=== PATIENT | female | born 1970 | race Caucasian/White ===

== ENCOUNTER 2021-08-21 15:40 | Inpatient (IN) ==
[2021-08-21] MEDS ORDERED: Nitroglycerin 0.4 MG TAB.SUBL SL PRN (18:12)
[2021-08-21] MEDS ORDERED: Aspirin 325 MG TABLET PO ONE (18:12)
[2021-08-21 18:21] LABS: Basophils # 0.1 K/mcL (0.0-0.2); Basophils % 0.6 %; Eosinophils # 0.1 K/mcL (0.0-0.6); Eosinophils % 1.5 %; Hematocrit 42.7 % (35.3-44.9); Hemoglobin 14.2 g/dL (11.5-15.4); Immature Granulocytes % 0.3 % (0-4); Lymphocytes # 3.7 K/mcL (0.6-4.6); Mean Corpuscular HGB Conc 33.3 g/dL (31.6-35.5); Mean Corpuscular Hemoglobin 29.6 pg (28.0-33.3); Mean Corpuscular Volume 89.1 fL (83.0-100.0); Mean Platelet Volume 10.6 fL (9.4-12.4); Monocytes # 0.8 K/mcL (0.0-1.3); Monocytes % 9.9 %; Neutrophils # 3.1 K/mcL (1.6-8.9); Platelet Count 236 K/mcL (140-400); Red Blood Count 4.79 M/mcL (3.82-4.97); Red Cell Distribution Width 12.2 % (11.5-14.5); Segmented Neutrophils % 39.7 %; White Blood Count 7.8 K/mcL (4.3-11.1)
[2021-08-21 18:35] LABS: BUN/Creatinine Ratio 29 (6-26); Blood Urea Nitrogen 18 mg/dL (6-20); Calcium 9.6 mg/dL (8.6-10.3); Carbon Dioxide 27 mEq/L (23-29); Chloride 102 mEq/L (98-107); Glucose 126 mg/dL (70-105); Osmolality,Calculated 287 (280-300); Potassium 3.6 mEq/L (3.5-5.1); Sodium 137 mEq/L (136-145); eGFR For African Americans > 60 (> 60); eGFR For Non-African Americans > 60 (> 60)
[2021-08-21 18:36] LABS: INR 1.1; Prothrombin Time 12.8 Seconds (9.4-12.1); Troponin I < 0.03 ng/mL (< 0.04)
[2021-08-21 18:39] LABS: Activated Partial Thrombo Time 28.2 Seconds (26.0-36.0)
[2021-08-21] MEDS ORDERED: Acetaminophen 325 MG TABLET PO PRN (19:39)
[2021-08-21] MEDS ORDERED: Melatonin 3 MG TABLET PO PRN (19:39)
[2021-08-21] MEDS ORDERED: Naloxone 0.4 MG/ML INJ IVP PRN (19:39)
[2021-08-21] MEDS ORDERED: *HR* HYDROcodone/Acet 5/325 mg TABLET PO PRN (19:39)
[2021-08-21] MEDS ORDERED: *HR* OxyCODONE Immed Rel 5 MG TABLET PO PRN (19:39)
[2021-08-21] MEDS ORDERED: Ondansetron ODT 4 MG TAB.RAPDIS SL PRN (19:39)
[2021-08-21] MEDS ORDERED: Perflutren Lipid Microsphere 1.3 ML in 0.9 % Sodium Chloride 8.7 ML IVP PRN (19:42)
[2021-08-21] MEDS ORDERED: *HR* Dextrose 50 % in Water (Syg) 50 ML SYRINGE IVP PRN (19:48)
[2021-08-21] MEDS ORDERED: D5% in Water 1,000 ML IVC PRN (19:48)
[2021-08-21] MEDS ORDERED: Dextrose 4 GM Chewable Tablets PO PRN ×2 (19:48)
[2021-08-22] MEDS: Insulin LISPRO 300 UNITS/3 ML VIAL SUBQ SCH ×4 (00:10→16:48)
[2021-08-22 01:19] LABS: BUN/Creatinine Ratio 20 (6-26); Blood Urea Nitrogen 16 mg/dL (6-20); Calcium 9.1 mg/dL (8.6-10.3); Carbon Dioxide 26 mEq/L (23-29); Chloride 105 mEq/L (98-107); Chol/HDL Ratio 4.1 (0-4.9); Cholesterol 144 mg/dL (< 200); Glucose 115 mg/dL (70-105); HDL Cholesterol 35 mg/dL (40-59); LDL Cholesterol,Calculated 82 mg/dL (< 100); Magnesium 1.8 mg/dL (1.6-2.6); Osmolality,Calculated 290 (280-300); Phosphorous 4.9 mg/dL (2.7-4.5); Potassium 3.6 mEq/L (3.5-5.1); Sodium 139 mEq/L (136-145); Triglycerides 134 mg/dL (< 150); eGFR For African Americans > 60 (> 60); eGFR For Non-African Americans > 60 (> 60)
[2021-08-22 01:28] LABS: Hematocrit 40.4 % (35.3-44.9); Hemoglobin 13.5 g/dL (11.5-15.4); Mean Corpuscular HGB Conc 33.4 g/dL (31.6-35.5); Mean Corpuscular Hemoglobin 29.3 pg (28.0-33.3); Mean Corpuscular Volume 87.8 fL (83.0-100.0); Mean Platelet Volume 10.7 fL (9.4-12.4); Platelet Count 233 K/mcL (140-400); Red Cell Distribution Width 12.2 % (11.5-14.5); White Blood Count 7.8 K/mcL (4.3-11.1)
[2021-08-22 01:32] LABS: Thyroid Stimulating Hormone 0.919 mcIU/mL (0.340-5.600)
[2021-08-22 02:42] LABS: Estimated Average Glucose 192 mg/dl; Hemoglobin A1C 8.3 %
[2021-08-22] MEDS ORDERED: Regadenoson 0.4 MG/5 ML SYRINGE IVP ONE (06:14)
[2021-08-22] MEDS: Losartan/HCTZ 50-12.5 TABLET PO SCH (09:42)
[2021-08-22] MEDS: Aspirin 81 MG TAB.CHEW PO SCH (09:42)
[2021-08-22] MEDS: Insulin DETEMIR 100 UNIT/ML X5UNITS SUBQ SCH (09:43)
[2021-08-22] MEDS: Metoprolol XL (24 HR) Succ 25 MG TAB.ER.24H PO SCH (12:35)
[2021-08-22] MEDS: *HR* Heparin 5,000 UNIT/ML VIAL SQ SCH ×2 (12:36→21:07)
[2021-08-23] MEDS: Insulin LISPRO 300 UNITS/3 ML VIAL SUBQ SCH ×5 (00:06→23:46)
[2021-08-23] MEDS: *HR* Heparin 5,000 UNIT/ML VIAL SQ SCH ×3 (05:44→21:45)
[2021-08-23 05:48] LABS: BUN/Creatinine Ratio 21 (6-26); Blood Urea Nitrogen 13 mg/dL (6-20); Calcium 9.2 mg/dL (8.6-10.3); Carbon Dioxide 28 mEq/L (23-29); Chloride 105 mEq/L (98-107); Glucose 110 mg/dL (70-105); Magnesium 1.9 mg/dL (1.6-2.6); Osmolality,Calculated 291 (280-300); Potassium 3.7 mEq/L (3.5-5.1); Sodium 140 mEq/L (136-145); eGFR For African Americans > 60 (> 60); eGFR For Non-African Americans > 60 (> 60)
[2021-08-23] MEDS: Losartan/HCTZ 50-12.5 TABLET PO SCH (08:28)
[2021-08-23] MEDS: Metoprolol XL (24 HR) Succ 25 MG TAB.ER.24H PO SCH (08:34)
[2021-08-23] MEDS: Aspirin 81 MG TAB.CHEW PO SCH (08:34)
[2021-08-23] MEDS: Insulin DETEMIR 100 UNIT/ML X5UNITS SUBQ SCH (08:36)
[2021-08-23] MEDS ORDERED: *HR* Heparin 10,000 UNIT/10 ML VIAL ONE ×2 (12:58→13:40)
[2021-08-23] MEDS ORDERED: Heparin 1,000 UNITS/500 mL 500 ML ONE ×2 (12:58→14:07)
[2021-08-23] MEDS ORDERED: ISOVUE-370 200 ML INFUS..BTL ONE ×2 (12:58→14:14)
[2021-08-23] MEDS ORDERED: *HR* Midazolam HCl 2 MG/2 ML VIAL ONE (12:58)
[2021-08-23] MEDS ORDERED: *HR* FentaNYL (PF) 100 MCG/2 ML VIAL ONE (12:58)
[2021-08-23] MEDS ORDERED: Nitroglycerin 1,000 MCG/5 ML VIAL IV ONE (12:59)
[2021-08-23] MEDS ORDERED: 0.9 % Sodium Chloride 1,000 ML ONE (12:59)
[2021-08-23] MEDS ORDERED: *HR* Ticagrelor 90 MG TABLET ONE ×2 (13:45)
[2021-08-24 01:29] LABS: Hematocrit 41.4 % (35.3-44.9); Hemoglobin 13.9 g/dL (11.5-15.4); Mean Corpuscular HGB Conc 33.6 g/dL (31.6-35.5); Mean Corpuscular Hemoglobin 29.8 pg (28.0-33.3); Mean Corpuscular Volume 88.8 fL (83.0-100.0); Mean Platelet Volume 10.2 fL (9.4-12.4); Platelet Count 231 K/mcL (140-400); Red Blood Count 4.66 M/mcL (3.82-4.97); Red Cell Distribution Width 12.4 % (11.5-14.5); White Blood Count 6.1 K/mcL (4.3-11.1)
[2021-08-24 01:49] LABS: BUN/Creatinine Ratio 23 (6-26); Blood Urea Nitrogen 13 mg/dL (6-20); Calcium 9.1 mg/dL (8.6-10.3); Carbon Dioxide 25 mEq/L (23-29); Chloride 106 mEq/L (98-107); Glucose 103 mg/dL (70-105); Magnesium 1.9 mg/dL (1.6-2.6); Osmolality,Calculated 288 (280-300); Potassium 3.5 mEq/L (3.5-5.1); Sodium 139 mEq/L (136-145); eGFR For African Americans > 60 (> 60); eGFR For Non-African Americans > 60 (> 60)
[2021-08-24] MEDS: *HR* Heparin 5,000 UNIT/ML VIAL SQ SCH (05:41)
[2021-08-24] MEDS: Insulin LISPRO 300 UNITS/3 ML VIAL SUBQ SCH ×2 (05:47→11:52)
[2021-08-24] MEDS: Metoprolol XL (24 HR) Succ 25 MG TAB.ER.24H PO SCH (07:24)
[2021-08-24] MEDS: Aspirin 81 MG TAB.CHEW PO SCH (07:24)
[2021-08-24] MEDS: Losartan/HCTZ 50-12.5 TABLET PO SCH (07:24)
[2021-08-24] MEDS: Insulin DETEMIR 100 UNIT/ML X5UNITS SUBQ SCH (07:25)
[2021-08-24 10:38] VITALS: BP 125/84; PULSE 83; TEMP 98.2; O2SAT 94
== END 2021-08-24 13:02 | disposition home or self-care (01) | DRG 247 ==
LOC: EMEROOARM 15:40 → 3BNU 15:40 → SUATTDRO 19:34 → 3BNU 19:52
PROVIDERS: ADMIT Internal Medicine; ATTEND Registered Nurse

== ENCOUNTER 2021-08-26 08:09 | Observation (INO) ==
[2021-08-26 09:56] LABS: Basophils % 0.6 %; Eosinophils # 0.2 K/mcL (0.0-0.6); Eosinophils % 2.2 %; Hematocrit 44.5 % (35.3-44.9); Hemoglobin 14.6 g/dL (11.5-15.4); Immature Granulocytes % 0.1 % (0-4); Lymphocytes # 3.5 K/mcL (0.6-4.6); Mean Corpuscular HGB Conc 32.8 g/dL (31.6-35.5); Mean Corpuscular Hemoglobin 29.6 pg (28.0-33.3); Mean Corpuscular Volume 90.3 fL (83.0-100.0); Mean Platelet Volume 10.5 fL (9.4-12.4); Monocytes # 0.8 K/mcL (0.0-1.3); Monocytes % 10.6 %; Neutrophils # 2.7 K/mcL (1.6-8.9); Platelet Count 238 K/mcL (140-400); Red Blood Count 4.93 M/mcL (3.82-4.97); Red Cell Distribution Width 12.3 % (11.5-14.5); Segmented Neutrophils % 37.5 %; White Blood Count 7.2 K/mcL (4.3-11.1)
[2021-08-26] MEDS ORDERED: GI Cocktail 40 ML EACH PO ONE (10:04)
[2021-08-26 10:06] LABS: BUN/Creatinine Ratio 20 (6-26); Blood Urea Nitrogen 15 mg/dL (6-20); Calcium 9.3 mg/dL (8.6-10.3); Carbon Dioxide 26 mEq/L (23-29); Chloride 106 mEq/L (98-107); Glucose 156 mg/dL (70-105); Osmolality,Calculated 292 (280-300); Potassium 3.8 mEq/L (3.5-5.1); Sodium 139 mEq/L (136-145); eGFR For African Americans > 60 (> 60); eGFR For Non-African Americans > 60 (> 60)
[2021-08-26 10:10] LABS: Troponin I 0.05 ng/mL (< 0.04)
[2021-08-26 10:25] LABS: Magnesium 1.9 mg/dL (1.6-2.6)
[2021-08-26] MEDS ORDERED: Isovue-370 500 ML BOTTLE IVP ONE (10:52)
[2021-08-26] MEDS ORDERED: Naloxone 0.4 MG/ML INJ IVP PRN ×2 (13:12→13:47)
[2021-08-26] MEDS ORDERED: Ondansetron ODT 4 MG TAB.RAPDIS SL PRN (13:12)
[2021-08-26] MEDS ORDERED: D5% in Water 1,000 ML IVC PRN (13:16)
[2021-08-26] MEDS ORDERED: Dextrose 4 GM Chewable Tablets PO PRN ×2 (13:16)
[2021-08-26] MEDS ORDERED: *HR* Dextrose 50 % in Water (Syg) 50 ML SYRINGE IVP PRN (13:16)
[2021-08-26] MEDS: Aspirin Enteric Coated 81 MG Tablet PO SCH (13:56)
[2021-08-26] MEDS: Metoprolol XL (24 HR) Succ 25 MG TAB.ER.24H PO SCH (14:12)
[2021-08-26] MEDS: *HR* Heparin 5,000 UNIT/ML VIAL SQ SCH ×2 (14:13→20:57)
[2021-08-26] MEDS: Insulin DETEMIR 100 UNIT/ML X5UNITS SUBQ SCH (14:18)
[2021-08-26] MEDS ORDERED: Lidocaine 4% CREAM (LMX) 5 GM TP PRN (14:19)
[2021-08-26] MEDS ORDERED: Perflutren Lipid Microsphere 1.3 ML in 0.9 % Sodium Chloride 8.7 ML IVP PRN (15:18)
[2021-08-26] MEDS: Insulin LISPRO 300 UNITS/3 ML VIAL SUBQ SCH (17:15)
[2021-08-26] MEDS ORDERED: Insulin LISPRO 300 UNITS/3 ML VIAL SUBQ SCH (21:00)
[2021-08-27 00:42] LABS: Hematocrit 40.4 % (35.3-44.9); Hemoglobin 13.7 g/dL (11.5-15.4); Mean Corpuscular HGB Conc 33.9 g/dL (31.6-35.5); Mean Corpuscular Hemoglobin 29.8 pg (28.0-33.3); Mean Platelet Volume 10.1 fL (9.4-12.4); Platelet Count 199 K/mcL (140-400); Red Blood Count 4.59 M/mcL (3.82-4.97); Red Cell Distribution Width 12.3 % (11.5-14.5); White Blood Count 7.5 K/mcL (4.3-11.1)
[2021-08-27 01:04] LABS: BUN/Creatinine Ratio 20 (6-26); Blood Urea Nitrogen 12 mg/dL (6-20); Calcium 8.8 mg/dL (8.6-10.3); Carbon Dioxide 24 mEq/L (23-29); Chloride 108 mEq/L (98-107); Glucose 117 mg/dL (70-105); Osmolality,Calculated 293 (280-300); Phosphorous 3.9 mg/dL (2.7-4.5); Sodium 141 mEq/L (136-145); eGFR For African Americans > 60 (> 60); eGFR For Non-African Americans > 60 (> 60)
[2021-08-27] MEDS: *HR* Heparin 5,000 UNIT/ML VIAL SQ SCH (06:11)
[2021-08-27 08:31] VITALS: BP 131/83; PULSE 66; TEMP 98.3; O2SAT 97
[2021-08-27] MEDS: Insulin DETEMIR 100 UNIT/ML X5UNITS SUBQ SCH (08:38)
[2021-08-27] MEDS: Metoprolol XL (24 HR) Succ 25 MG TAB.ER.24H PO SCH (08:39)
[2021-08-27] MEDS: Aspirin Enteric Coated 81 MG Tablet PO SCH (08:39)
[2021-08-27] MEDS: Insulin LISPRO 300 UNITS/3 ML VIAL SUBQ SCH (08:39)
[2021-08-27] MEDS ORDERED: Losartan/HCTZ 50-12.5 TABLET PO SCH (09:00)
== END 2021-08-27 09:32 | disposition home or self-care (01) ==
LOC: EMEROOARM 08:09 → 3BNU 08:09 → SUATTDRO 13:02 → 3BNU 13:35
PROVIDERS: ADMIT Student in an Organized Health Care Education/Training Program; ATTEND Internal Medicine